=== PATIENT | female | born 1970 | race Asian ===

== ENCOUNTER 2019-01-11 20:02 | Emergency (ER) | payer OTHER ==
--- NOTE | 2019-01-11 20:18 | EDPHY ---
H & P Time Seen by Provider: 01/11/19 20:15 HPI/ROS: Chief complaint. Shoulder pain HPI. 48-year-old female presents emergency department with right lateral neck and posterior shoulder pain. She fell skiing 5 days ago. She had no pain initially. However gradually she began to have discomfort to the right side of her neck. She has been using Advil and Tylenol with improvement. She saw [place] massage therapist yesterday and had cupping massage which also helped her discomfort. She is concerned that she may have injury to her neck. She does have some radiation to the right shoulder. No head injury or loss of consciousness. No chest pain or shortness of breath. No abdominal pain. No previous spine injury. ROS 10 systems were reviewed and negative with the exception of the elements mentioned in the history of present illness Past Medical/Surgical History: Healthy Social History: , nonsmoker, no alcohol Smoking Status: Never smoked Physical Exam: General Appearance: Pleasant well-developed female mild distress vital signs are stable Eyes: Pupils equal and round no pallor or injection. ENT, Mouth: Mucous membranes are moist. Respiratory: There are no retractions, lungs are clear to auscultation. Cardiovascular: Regular rate and rhythm. Gastrointestinal: Abdomen is soft and nontender, no masses, bowel sounds normal. Neurological: Awake and alert, sensory and motor exams grossly normal. Skin: Warm and dry, no rashes. Patient has multiple cupping bruise arita on her back Musculoskeletal: Tenderness adjacent to the cervical spine on the right. No tenderness over the spinous process. No discomfort to palpation of the scapula or shoulder Extremities symmetrical, full range of motion. Psychiatric: Patient is oriented X 3, there is no agitation. Constitutional: Initial Vital Signs Temperature (C) 36.7 C 01/11/19 20:05 Heart Rate 74 01/11/19 20:05 Respiratory Rate 16 01/11/19 20:05 Blood Pressure 136/54 H 01/11/19 20:05 O2 Sat (%) 99 01/11/19 20:05 O2 Delivery Mode Room Air Allergies/Adverse Reactions: No Known Allergies Allergy (Unverified 01/11/19 20:08) Home Medications: Medication Instructions Recorded Cyclobenzaprine [Flexeril 10 MG 10 mg PO TID PRN #7 tab 01/11/19 (*)] Medical Decision Making - Diagnostics Imaging Results: Imaging Impressions Cervical Spine X-Ray 01/11/19 20:39 Impression: No evidence of an acute fracture or subluxation. C-spine x-ray shows straightening of the normal lordotic curvature. DJD. Soft tissues normal. No acute fracture dislocation ED Course/Re-evaluation: Re-evaluation 9:05 p.m.. Patient and I discussed imaging study results, treatment plan including criteria for return and importance of follow-up and further evaluation. She expresses understanding and agreement Differential Diagnosis: I believe this is cervical strain. I considered fracture, dislocation Departure - Departure Disposition: Home, Routine, Self-Care Clinical Impression: Cervical strain, acute Qualifiers: Encounter type: initial encounter Qualified Code(s): S16.1XXA - Strain of muscle, fascia and tendon at neck level, initial encounter Condition: Good Instructions: Cervical Strain (ED) Additional Instructions: Ibuprofen 600 mg every 6 hr for discomfort Flexeril as muscle relaxer using 1 pill every 8 hr as needed for muscle tightness and spasm. May cause drowsiness and you may want to use this only at night. Activity as tolerated Return for worsening symptoms Recheck in 2-3 days if not improving Referrals: Angely Shahid MD [Primary Care Provider] - 2-3 days, if not improved Prescriptions: Cyclobenzaprine [Flexeril 10 MG (*)] 10 mg PO TID PRN #7 tab PRN Reason: Spasms
[2019-01-11] MEDS ORDERED: CYCLOBENZAPRINE 10MG PREPACK#3 BTL TAKEHOME ONE (21:08)
[2019-01-11] MEDS ORDERED: IBUPROFEN 600 MG TAB PO ONE (21:22)
[2019-01-11 21:35] VITALS: BP 118/89
== END 2019-01-11 21:35 | disposition home or self-care (01) ==
DX: S16.1XXA Strain of muscle, fascia and tendon at neck level, initial encounter (principal); M25.551 Pain in right hip; X50.9XXA Other and unspecified overexertion or strenuous movements or postures, initial encounter